=== PATIENT | female | born 1960 | race Caucasian/White ===

== ENCOUNTER 2023-12-25 07:13 | Day surgery (SDC) | payer BC ==
[2023-12-25] VITALS (17 sets, daily range): BP systolic 113–149; BP diastolic 64–84; PULSE 62–72; TEMP 97
[~2023-12-25] VITALS: Ht 157.6 cm; Wt 68.4 kg
[2023-12-25] MEDS ORDERED: 1/2 NS 1,000 ML IV SCH ×2 (07:45)
[2023-12-25] MEDS ORDERED: NS Flush 10 ML SYRINGE PRN ICA (07:45)
[2023-12-25 08:12] LABS: HEMOGLOBIN 12.9 g/dl (12.5-16.0); MEAN CELL VOLUME 93 fl (80.0-100.0); MEAN CORPUSCULAR HEMOGLOBIN 33 pg (27-31); MEAN CORPUSCULAR HGB CONC 35 g/dl (33.0-37.0); MEAN PLATELET VOLUME 9.3 fl (7.4-10.4); PLATELET COUNT 254 K/mm3 (130-400); RED BLOOD COUNT 3.96 M/mm3 (4.10-5.30)
[2023-12-25 08:18] LABS: PROTHROMBIN TIME 11.1 SECONDS (9.7-12.8)
[2023-12-25 08:21] LABS: PARTIAL THROMBOPLASTIN TIME 32.8 SECONDS (26.0-37.0)
[2023-12-25 08:28] LABS: CALCIUM 9.2 mg/dL (8.4-10.2); CREATININE, serum 0.77 mg/dL (0.57-1.11)
[2023-12-25] MEDS ORDERED: GLUCOPHAGE XR750 MG PO (08:43)
[2023-12-25] MEDS ORDERED: LIPITOR 40MG TA40 MG PO (08:43)
[2023-12-25] MEDS ORDERED: ACCOLATE 220 MG/1 TA PO (08:44)
[2023-12-25] MEDS ORDERED: ALLEGRA 180MG180 MG PO (08:44)
[2023-12-25] MEDS ORDERED: ZZZQUIL PO (08:51)
--- NOTE | 2023-12-25 08:52 | NUR ---
Pt to procedure,report to DANELLE Siu.
[2023-12-25] MEDS ORDERED: Lidocaine PF 2% (20 MG/ML) 5 ML VIAL ONE (08:55)
[2023-12-25] MEDS ORDERED: NS Flush 10 ML SYRINGE BID ICA SCH (09:00)
--- NOTE | 2023-12-25 09:10 | NUR ---
Refer to [facility] Report for procedural sedation/notes
[2023-12-25] MEDS ORDERED: Heparin 1,000 UNITS/ML 10 ML Multi-Dose VIAL IV SCH (09:50)
[2023-12-25] MEDS ORDERED: Verapamil 2.5 MG/ML 2 ML VIAL IA SCH (09:51)
[2023-12-25] MEDS ORDERED: Nitroglycerin 100 MCG/ML (Cath Lab) 10 ML VIAL IA SCH (09:51)
[2023-12-25] MEDS ORDERED: Midazolam 2 MG/2 ML VIAL IV SCH (09:53)
[2023-12-25] MEDS ORDERED: fentaNYL 50 MCG/ML 2 ML VIAL IV SCH (09:53)
[2023-12-25] MEDS ORDERED: Iohexol 350 - 100 ML VIAL INCOR ONE (09:54)
--- NOTE | 2023-12-25 10:15 | NUR ---
Pt back to [facility] - bedside handoff and report provided to DANELLE Catalan. Radial access site assessed and stable. Vitals initiated and stable. Call light in reach, family at bedside.
--- NOTE | 2023-12-25 14:00 | NUR ---
Dressing to right radial site observed clean,dry,intact and soft to touch.
--- NOTE | 2023-12-25 14:11 | NUR ---
Discharge instructions given to pt.Pt verbalizes understanding.Pt escortedout via wheelchair by this nurse.
== END 2023-12-25 15:41 ==
LOC: COL.CAR 07:13
PROVIDERS: Internal Medicine Cardiovascular Disease
DX: I08.0 Rheumatic disorders of both mitral and aortic valves (principal); I70.0 Atherosclerosis of aorta; E78.2 Mixed hyperlipidemia; Z79.899 Other long term (current) drug therapy
CPT/HCPCS: C1769; J1644; J2250; J2704; J3010; Q9967